=== PATIENT | female | born 1980 | race Caucasian/White ===

== ENCOUNTER 2024-08-15 14:42 | Outpatient (AMB) | payer OTHER, SELFPAY ==
--- NOTE | 2024-08-15 14:49 | AMB.GYNCLNOT ---
Vital Signs 08/15/24 14:50 Height 1.52 m Height Method Stated Weight 73.085 kg Weight Measurement Method Standing Scale BMI 31.4 BP 145/84 H Blood Pressure Source Automatic Cuff Blood Pressure Location Left Upper Arm Position Sitting Respiration 14 Pulse 65 Pulse Source Monitor Temp 97.8 F Temp Source Oral Pulse Oximetry (%) 98 Oxygen Delivery Method Room Air Allergies/Home Meds Allergies & Medications Allergies No Known Allergies Allergy (Verified 08/15/24 14:51) Medication Reconciliation No Known Home Medications 08/15/24 [History Confirmed 08/15/24] Intake Visit Data Collection New Patient or Established: New Patient (never been to [facility]) Reason for Visit:: DISCUSS CONTROL Seen by Clinical Staff ONLY (RN/MA): No Data Consultant Required: No Do You Feel Safe at Home: Yes Authorities Contacted: N/A PCP or OBGYN visit in last 3 months: No Hx Now: No Are you currently on any form of Control: Yes Last menstrual period: 07/21/24 Pain Present Currently: No Pain Scale Used: [place]-Vasquez/Numerical Pain scale:: 0 Smoking Status Smoking Status: Never smoker 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 1. Little interest or pleasure in doing things: not at all 2. Feeling down, depressed, or hopeless: not at all Total score: 0 PHQ-9 3. Trouble falling or staying asleep, or sleeping too much: Not at all 4. Feeling tired or having little energy: Not at all 5. Poor appetite or overeating: Not at all 6. Feeling bad about yourself - or that you are a failure or have let yourself or your family down: Not at all 7. Trouble concentrating on things, such as reading the newspaper or watching television: Not at all 8. Moving or speaking so slowly that other people could have noticed? - Or the opposite - being so fidgety or restless that you have been moving around a lot more than usual: not at all 9. Thoughts that you would be better off or of hurting yourself in some way: Not at all Total score: 0 Source: Developed by Drs. Elias Arenas, Tita Myrick, Michael Rothman and colleagues, with an educational ja from [employer]. Depression screen completed yes Social History Living Situation History Marital Status: Lives With: Family Housing: House Housing Other:: Works at [employer]. Getting a bachelor's in business Tobacco History Smoking Status: Never smoker Second Hand Smoke Exposure: No Alcohol History Alcohol Intake: Never Domestic Abuse History Do You Feel Safe at Home: Yes Past Medical History Past Medical History Have you ever been diagnosed with any of the following: Neurological Problems Seizures: No Migraine: No Cardiology Problems Cardiac Arrhythmia: No Heart Murmur: No Respiratory Problems Asthma: No Tobacco Use: No Stomache/Intestinal Problems Gall Bladder Disease: No Irritable Bowel: No Genital/Urinary Problems Renal Disease: No Kidney Stones: No Reproductive Problems Breast Cancer: No Endometriosis: No Fibroids: No Genital Herpes: No Gonorrhea: No Pelvic Inflammatory Disease: No Polycystic Ovarian Syndrome: No Previous Pregnancies: Yes (History of x 3 vaginal delivery x 1 D&C x 1) Musculoskeletal Problems Rheumatoid Arthritis: No Endocrine Problems Diabetes Mellitus Type 2: No Hyperthyroidism: No Hypothyroidism: No Blood Problems Anemia: No Psychologic Problems Depression: No Anxiety: No Other Problems Hospitalization: Yes (For childbirth) Autoimmune Disease: No Cosmetic Surgery: No Surgical History Appendectomy: No Bariatric Surgery: No Breast Surgery: No Cholecystectomy: No Additional Surgical History: History of x 3, history of D&C x 1 history of colposcopies and biopsies History of Present Illness HPI Narrative The patient is a 44-year-old -0-1-4 who has been my patient in [place] for years. She released her records to a doctor in [place] and does not have those available. She was not sure I was going to be working in [place]. She would like to come see me. She wants to establish care so she can refill her control. She is not due for a Pap smear until January. Patient is on the NuvaRing for contraception. Originally her blood pressure was elevated today but on retake it was 130/80. Patient states she was upset as she does not want to release her medical records again as she already released them to [place] and this might have been why her blood pressure was elevated. She has no gynecological complaints specifically no new sexual partners, no abnormal discharge, no dysuria, no pelvic pain. She does have a history of abnormal Paps in the past and for this reason I do need her to release her records from her doctor in [place]. She will sign a release today. Exam General General Appearance: alert, in no apparent distress, comfortable, cooperative, healthy appearing and well groomed Assessment & Plan Diagnosis / Problem List (1) Contraceptive management: Status: Acute Qualifiers: Contraceptive type: vaginal ring Contraceptive encounter type: surveillance Qualified Code(s): Z30.44 - Encounter for surveillance of vaginal ring hormonal contraceptive device Assessment and Plan: Patient has already been on the NuvaRing. She is happy on this. She would like a refill. All questions were answered. She will schedule an annual exam for January 2025. She is due for mammogram around that same time. Office Procedures OB Clinic LOC & Office Proc's Nursing/Assessment Patient Status: Initial/New Patient OB Clinic Nursing Assessment: Medication Reconciliation, Update PMH in EMR and Vital Signs OB Clinic Coordination of Care: Complex Care and Chronic Disease 1-5, Consent,records obtained, informed consent, Education Simp Pt/Fam, Lab and Imaging orders and Staff clarify orders New Patient Charge New Patient Point Assignment: 1099 New Patient Point Charge: BUZZSAW OPERATOR HELPER Level 3 ([id number])
[2024-08-15 14:50] VITALS: BP 145/84; PULSE 65; RESP 14; TEMP 36.6; O2SAT 98; BMI 31.4
== END 2024-08-15 15:50 | disposition home or self-care (01) ==
LOC: HODSOBC 14:42
PROVIDERS: PCP Family Medicine; Referring Provider Family Medicine; Supervising Provider Obstetrics & Gynecology; Visit Provider Obstetrics & Gynecology
DX: Z30.44 Encounter for surveillance of vaginal ring hormonal contraceptive device (principal)
CPT/HCPCS: 99203; G0463